=== PATIENT | male | born 1975 | race Caucasian/White ===

== ENCOUNTER 2025-02-05 10:42 | Emergency (ER) | payer MEDICAID ==
[~2025-02-05] VITALS: Ht 180.3 cm; Wt 70.0 kg
[~2025-02-05 10:42] MED LIST: INSU100I28 SQ; PROT40 MT
[2025-02-05 11:21] VITALS: BP 123/78; TEMP 36.6; O2SAT 99
[2025-02-05 11:25] VITALS: PULSE 98; RESP 18; O2SAT 100
== END 2025-02-05 13:09 | disposition home or self-care (01) ==
LOC: ER 10:42
DX: H57.11 Ocular pain, right eye (principal); E11.9 Type 2 diabetes mellitus without complications; I10 Essential (primary) hypertension; Z79.4 Long term (current) use of insulin; Z79.899 Other long term (current) drug therapy
CPT/HCPCS: 99282